=== PATIENT | female | born 1965 | race Caucasian/White ===

== ENCOUNTER → 2023-01-06 | Outpatient (CLI) | payer OTHER ==
--- NOTE | 2023-01-07 10:25 | MR ---
EXAMINATION TYPE: MR liver wo/w con DATE OF EXAM: 01/06/2023 2:26 PM CLINICAL INDICATION:Female, 57 years old with history of K76.89 OTHER SPECIFIED DISEASES OF LIVER; PH H, Left hepatic lobe lesion COMPARISON: MRI from 05/19/2022.. TECHNIQUE: Multiplanar multi-sequence imaging was performed without contrast. Post contrast imaging was performed. Post IV contrast subtraction images were also submitted for review. IV Contrast: 7 cc Gadavist FINDINGS: LOWER CHEST: No gross irregularity. ABDOMEN Liver: Hepatic steatosis. No evidence for cirrhosis. Redemonstration of 13 x 10 mm lesion which is hi gh DWI, intermediate T2 and low T1 signal. This lesion on postcontrast imaging demonstrates progressi ve enhancement which persists on delayed imaging. Overall findings not significantly changed from ольга or imaging on 05/01/2022. No additional suspicious observations identified. Gallbladder and Bile ducts: No evidence for ductal dilation, or biliary stricture or evidence of chol edocholithiasis. The gallbladder is within normal limits. Pancreas: No ductal dilation. No evidence for solid mass. Spleen: Normal for size. Adrenal glands: Unremarkable. Kidneys: No evidence for obstructive uropathy. No suspicious renal masses. Stomach and Bowel: No evidence for bowel wall thickening or evidence for obstruction.. Peritoneum: No evidence of pneumoperitoneum or free fluid. Vasculature: No aortic aneurysm. Musculoskeletal: The osseous structures appear intact. Lymph Nodes: No gross evidence for lymphadenopathy. Abdominal wall: Unremarkable. IMPRESSION: 1. Observation within the left hepatic lobe measuring 13 x 10 mm with progressive enhancement that p ersists on delayed imaging. Findings favored represent benign etiology such as hemangioma versus hepa tic adenoma. Follow-up in 6 months is recommended to ensure stability. 2. Hepatic steatosis.
== END | disposition home or self-care (01) ==
LOC: RADMRIMAIN 13:24
PROVIDERS: ATTEND Family Medicine
DX: K76.89 Other specified diseases of liver (principal); K76.0 Fatty (change of) liver, not elsewhere classified
CPT/HCPCS: 74183; A9585

== ENCOUNTER → 2023-12-18 | Outpatient (CLI) | payer OTHER ==
--- NOTE | 2023-12-28 10:01 | MM ---
Reason for Exam: Screening (asymptomatic). Last mammogram was performed 1 year(s) and 5 month(s) ago. Patient History: Menarche at age 16. First Full-Term at age 24. Postmenopausal. Patient used Hormonal Contraceptives for 12 years. Risk Values: Sharmila 5 year model risk: 1.0%. NCI Lifetime model risk: 6.6%. Prior Study Comparison: 05/19/2017 Bilateral MG screening mammo w CAD - 2, Unknown. 12/21/2018 Bilateral MG screening mammo w CAD - 2, Unknown. 07/22/2022 Bilateral MG screening mammo w CAD - 2, Unknown. Tissue Density: The breasts are heterogeneously dense, which may obscure small masses. Findings: Analyzed By CAD. Right breast: There is no suspicious group of microcalcifications or new suspicious mass. Left breast: Asymmetries left breast MLO view posterior nipple line and superiorly middle depth. Overall Assessment: Incomplete: need additional imaging evaluation, BI-RAD 0 Management: Diagnostic Mammogram of the left breast. [facility] will attempt to contact patient to return for supplemental views and ultrasound if indicated. Patient should continue monthly self-breast exams. A clinical breast exam by your physician is recommended on an annual basis. This exam should not preclude additional follow-up of suspicious palpable abnormalities. Note on Sharmila scores and lifetime risk: 1. A Sharmila score greater than 3% is considered moderate risk. If this is the case, consider specialist referral to assess eligibility for a risk reducing agent. 2. If overall lifetime risk for the development of breast cancer is 20% or higher, the patient may qualify for future screening with alternating mammogram and breast MRI. [facility], , 12/28/2023 9:58 AM. Electronically signed and approved by: Mario Wolf DO
== END | disposition home or self-care (01) ==
LOC: RADMAMWWP 11:10
PROVIDERS: ATTEND Family Medicine
CPT/HCPCS: 77067

== ENCOUNTER → 2024-01-05 | Outpatient (CLI) | payer OTHER ==
--- NOTE | 2024-01-05 09:25 | MM ---
Reason for Exam: Additional evaluation requested from abnormal screening. Last screening mammogram was performed less than 1 month ago. Patient History: Menarche at age 16. First Full-Term at age 24. Postmenopausal. Patient used Hormonal Contraceptives for 12 years. Risk Values: Sharmila 5 year model risk: 1.0%. NCI Lifetime model risk: 6.6%. Prior Study Comparison: 12/21/2018 Bilateral MG screening mammo w CAD - 2, Unknown. 07/22/2022 Bilateral MG screening mammo w CAD - 2, Unknown. 12/18/2023 Bilateral MG screening mammo w CAD, [facility]. Tissue Density: Left: The breasts are heterogeneously dense, which may obscure small masses. Findings: Analyzed By CAD. No persistent nodularity identified. Overall Assessment: Negative, BI-RAD 1 Management: Screening Mammogram of both breasts in 1 year. . Results were given to the patient verbally at the time of exam. Patient should continue monthly self-breast exams. A clinical breast exam by your physician is recommended on an annual basis. This exam should not preclude additional follow-up of suspicious palpable abnormalities. Note on Sharmila scores and lifetime risk: 1. A Sharmila score greater than 3% is considered moderate risk. If this is the case, consider specialist referral to assess eligibility for a risk reducing agent. 2. If overall lifetime risk for the development of breast cancer is 20% or higher, the patient may qualify for future screening with alternating mammogram and breast MRI. [facility], , 01/05/2024 9:21 AM. Electronically signed and approved by: Eloy Vee M.D. [facility]
== END | disposition home or self-care (01) ==
LOC: RADMAMWWP 08:28
PROVIDERS: ATTEND Family Medicine
DX: R92.8 Other abnormal and inconclusive findings on diagnostic imaging of breast
CPT/HCPCS: 77061; 77065